=== PATIENT | female | born 1960 | race Two or more races ===

== ENCOUNTER 2018-07-07 15:07 | Emergency (ER) | payer OTHER ==
[~2018-07-07] VITALS: Ht 154.9 cm; Wt 67.6 kg
[2018-07-07 15:39] VITALS: Ht 154.9 cm; Wt 67.6 kg
[2018-07-07 20:24] VITALS: BP 145/67
== END 2018-07-07 20:24 | disposition home or self-care (01) ==
LOC: ED 15:07
DX: K59.00 Constipation, unspecified (principal); N83.202 Unspecified ovarian cyst, left side; I10 Essential (primary) hypertension
CPT/HCPCS: J1885

== ENCOUNTER 2019-03-05 10:06 | Emergency (ER) | payer OTHER ==
[~2019-03-05] VITALS: Ht 154.9 cm; Wt 66.4 kg
[2019-03-05 10:09] VITALS: BP 127/71; Ht 154.9 cm; Wt 66.4 kg
[2019-03-05 10:35] LABS: BASOPHIL % 0.2 % (0-2); PLATELET COUNT 325 x10^3mcL (130-400)
[2019-03-05 10:39] LABS: CARBON DIOXIDE 26.3 mmol/L (21-32); CHLORIDE SERUM 103 mmol/L (98-107); CREATININE SERUM 0.9 mg/dL (0.6-1.0); GFR1 > 60 mL/min; GLUCOSE SERUM 98 mg/dL (74-106); POTASSIUM SERUM 3.1 mmol/L (3.5-5.1); SODIUM SERUM 140 mmol/L (136-145)
[2019-03-05 10:44] LABS: ALBUMIN 3.8 g/dL (3.4-5.0); ALKALINE PHOSPHATASE 69 U/L (46-116); ALT/SGPT 39 U/L (14-59); AST/SGOT 30 U/L (15-37); LIPASE 69 IU/L (73-393); TOTAL PROTEIN, SERUM 8.1 g/dL (6.4-8.2)
== END 2019-03-05 12:29 | disposition home or self-care (01) ==
LOC: ED 10:06
PROVIDERS: Emergency Medicine
DX: K52.9 Noninfective gastroenteritis and colitis, unspecified (principal); E87.6 Hypokalemia; I10 Essential (primary) hypertension
CPT/HCPCS: 36415; Q0162

== ENCOUNTER 2019-12-19 05:44 | Emergency (ER) | payer OTHER ==
[~2019-12-19] VITALS: Ht 154.9 cm; Wt 67.6 kg
[2019-12-19 06:04] VITALS: Ht 154.9 cm; Wt 67.6 kg
[2019-12-19 08:30] VITALS: BP 137/52
== END 2019-12-19 08:30 | disposition home or self-care (01) ==
LOC: ED 05:44
DX: J04.0 Acute laryngitis (principal); I10 Essential (primary) hypertension
CPT/HCPCS: J7512; Q0092